=== PATIENT | female | born 1985 | race Caucasian/White ===

== ENCOUNTER → 2016-05-05 | Outpatient (CLI) | payer OTHER | LOC: GRAD 04-11 09:00 | DX: N97.9 Female infertility, unspecified (principal) ==

== ENCOUNTER → 2016-05-31 | Outpatient (CLI) | payer OTHER | END | disposition disaster alternative care site (69) | LOC: GRAD 09:30 | DX: N97.9 Female infertility, unspecified (principal) ==

== ENCOUNTER → 2016-06-03 | Outpatient (CLI) | payer OTHER | END | disposition disaster alternative care site (69) | LOC: GLAB 06-02 09:15 → GRAD 06-02 09:30 → GLAB 09:15 → GRAD 08-01 08:30 | DX: N97.9 Female infertility, unspecified (principal) ==

== ENCOUNTER → 2016-06-06 | Outpatient (CLI) | payer OTHER | END | disposition disaster alternative care site (69) | LOC: GLAB 09:00 | DX: N97.9 Female infertility, unspecified (principal); N83.8 Other noninflammatory disorders of ovary, fallopian tube and broad ligament ==

== ENCOUNTER → 2016-07-19 | Outpatient (CLI) | payer OTHER | END | disposition disaster alternative care site (69) | LOC: GRAD 07-18 10:28 | DX: N97.9 Female infertility, unspecified (principal); N83.01 Follicular cyst of right ovary; N83.02 Follicular cyst of left ovary ==

== ENCOUNTER → 2016-07-22 | Outpatient (CLI) | payer OTHER | END | disposition disaster alternative care site (69) | LOC: GLAB 09:15 | DX: N97.9 Female infertility, unspecified (principal); N83.00 Follicular cyst of ovary, unspecified side ==

== ENCOUNTER → 2016-07-25 | Outpatient (CLI) | payer OTHER | END | disposition disaster alternative care site (69) | LOC: GLAB 07-22 13:30 | DX: N97.9 Female infertility, unspecified (principal) ==

== ENCOUNTER → 2016-07-27 | Outpatient (CLI) | payer OTHER | END | disposition disaster alternative care site (69) | LOC: GLAB 09:00 | DX: N97.9 Female infertility, unspecified (principal) ==

== ENCOUNTER → 2016-08-11 | Outpatient (CLI) | payer OTHER | END | disposition disaster alternative care site (69) | LOC: GLAB 09:38 | DX: Z32.01 Encounter for pregnancy test, result positive (principal) ==

== ENCOUNTER → 2016-08-15 | Outpatient (CLI) | payer OTHER | END | disposition disaster alternative care site (69) | LOC: GLAB 10:00 | DX: Z32.01 Encounter for pregnancy test, result positive (principal) ==

== ENCOUNTER → 2016-08-17 | Outpatient (CLI) | payer OTHER | END | disposition disaster alternative care site (69) | LOC: GLAB 07:46 | DX: Z32.01 Encounter for pregnancy test, result positive (principal) ==

== ENCOUNTER → 2016-09-12 | Outpatient (CLI) | payer OTHER | END | disposition disaster alternative care site (69) | LOC: GRAD 08:00 | DX: Z32.01 Encounter for pregnancy test, result positive (principal); Z3A.09 9 weeks gestation of pregnancy ==

== ENCOUNTER → 2016-09-19 | Outpatient (CLI) | payer OTHER | END | disposition disaster alternative care site (69) | LOC: GRAD 09-05 15:30 | DX: Z32.01 Encounter for pregnancy test, result positive (principal); Z3A.09 9 weeks gestation of pregnancy ==